=== PATIENT | female | born 1945 | race Two or more races ===

== ENCOUNTER 2022-07-08 13:10 | Inpatient (IN) | payer MEDICARE, MEDICAID ==
[~2022-07-08] VITALS: Ht 167.6 cm; Wt 72.2 kg
[2022-07-08 13:49] LABS: Basophils # (auto) 0.1 10 ^3/uL (0-0.2); Basophils % (auto) 0.8 % (0.0-2.0); Eosinophils # (auto) 0 10 ^3/uL (0-0.8); Eosinophils % (auto) 0.1 % (0.0-7.0); Hematocrit 40.8 % (36.0-46.0); Hemoglobin 13.8 g/dL (12.2-16.2); Lymphocytes % (auto) 11.3 % (10.0-50.0); Mean Corpuscular Hemoglobin 31.5 pg (28.0-32.0); Mean Corpuscular Hgb Conc. 33.9 g/dL (32.0-36.0); Mean Corpuscular Volume 93.1 fL (80.0-100.0); Monocytes # (auto) 1.5 10 ^3/uL (0-1.3); Monocytes % (auto) 8.6 % (0.0-12.0); Neutrophils % (auto) 79.2 % (37.0-80.0); Nucleated Red Blood Cells % 0.1 %; Red Blood Cells 4.39 10^6/uL (4.0-5.20); Red Cell Distribution Width 14.1 % (11.8-14.3); White Blood Cell 17.7 10^3/uL (4.4-10.8)
[2022-07-08 14:08] LABS: Partial Thromboplastin Time 28.8 sec (24.6-33.4)
[2022-07-08 14:15] LABS: Calcium 8.9 mg/dL (8.5-10.1); Magnesium 2.7 mg/dL (1.6-2.6)
[2022-07-08 14:18] LABS: BUN/Creatinine Ratio 11.3; Bilirubin, Total 1.3 mg/dL (0.2-1.0); Total Protein 7.4 g/dL (6.4-8.2)
[2022-07-08 14:20] LABS: Potassium 2.8 mmol/L (3.5-5.1)
[2022-07-08] MEDS ORDERED: POTASSIUM CHL 20 Meq TABLET PO ONE (15:45)
[2022-07-08] MEDS ORDERED: POTASSIUM CHL 20MEQ/100ML 100 ML IV ONE (15:45)
[2022-07-08] MEDS ORDERED: SODIUM CHLORIDE 0.9% 500 ML IV ONE (17:45)
[2022-07-08] MEDS ORDERED: NITROGLYCERIN 0.4 MG SL TAB SL PRN (17:45)
[2022-07-08] MEDS ORDERED: MORPHINE SULFATE INJ 2 MG/ml SYRG IV PRN (17:45)
[2022-07-08] MEDS ORDERED: LEVE500T3 PO (17:47)
[2022-07-08] MEDS ORDERED: DILT-26 PO (17:47)
[2022-07-08] MEDS ORDERED: DIGO0.25 PO (17:47)
[2022-07-08] MEDS ORDERED: MET25T PO (17:47)
[2022-07-08 19:33] LABS: Cholesterol 213 mg/dL (< 200)
[2022-07-08 19:36] LABS: HDL Cholesterol 36 mg/dL (40-59); LDL Cholesterol 142 mg/dL (< 100); Triglycerides 156 mg/dL (< 150)
[2022-07-08 20:56] LABS: BUN/Creatinine Ratio 13.7; Calcium 8.1 mg/dL (8.5-10.1)
[2022-07-08 21:53] LABS: Potassium 2.6 mmol/L (3.5-5.1)
[2022-07-09] MEDS: levETIRAcetam 500 MG TAB PO SCH ×4 (00:32→22:12)
[2022-07-09] MEDS: METOPROLOL TARTRATE 25 MG TAB PO SCH ×4 (00:32→22:13)
[2022-07-09] MEDS: POTASSIUM EFFERVESENT TAB 25 MEQ PO ONE ×2 (00:33→00:41)
[2022-07-09] MEDS: POTASSIUM CHLORIDE 80 MEQ, LIDOCAINE 1% (LOCAL ANESTH.) 6 ML in SODIUM CHL 0.9% 500 ML IV ONE ×2 (00:33→00:41)
[2022-07-09 07:47] LABS: Albumin 2.6 g/dL (3.4-5.0); BUN/Creatinine Ratio 15.6; Basophils # (auto) 0.1 10 ^3/uL (0-0.2); Basophils % (auto) 0.7 % (0.0-2.0); Calcium 8.2 mg/dL (8.5-10.1); Eosinophils # (auto) 0.1 10 ^3/uL (0-0.8); Eosinophils % (auto) 0.4 % (0.0-7.0); Hematocrit 37.6 % (36.0-46.0); Hemoglobin 12.9 g/dL (12.2-16.2); Lymphocytes # (auto) 1.4 10 ^3/uL (0.4-5.4); Lymphocytes % (auto) 10.4 % (10.0-50.0); Mean Corpuscular Hgb Conc. 34.4 g/dL (32.0-36.0); Mean Corpuscular Volume 93.1 fL (80.0-100.0); Monocytes # (auto) 1.2 10 ^3/uL (0-1.3); Monocytes % (auto) 8.7 % (0.0-12.0); Neutrophils # (auto) 11.1 10 ^3/uL (1.6-8.6); Neutrophils % (auto) 79.8 % (37.0-80.0); Red Blood Cells 4.04 10^6/uL (4.0-5.20); Red Cell Distribution Width 13.9 % (11.8-14.3); White Blood Cell 13.9 10^3/uL (4.4-10.8)
[2022-07-09 07:49] LABS: Bilirubin, Total 1.4 mg/dL (0.2-1.0); Total Protein 6.6 g/dL (6.4-8.2)
[2022-07-09 08:22] LABS: Potassium 2.7 mmol/L (3.5-5.1)
[2022-07-09] MEDS ORDERED: LORazepam 2MG/ML-1ML VIAL IV ONE (09:15)
[2022-07-09] MEDS: ENOXAPARIN SOD 40 MG/0.4 ML SYRINGE SC SCH (11:03)
[2022-07-09] MEDS: DIGOXIN 0.25 MG TAB PO SCH (11:03)
[2022-07-09] MEDS: dilTIAZem HCL 180MG ER CAP PO SCH (11:04)
[2022-07-09] MEDS ORDERED: HYDROcodone-ACET 5/325MG TAB PO PRN (13:45)
[2022-07-09] MEDS ORDERED: MORPHINE SULFATE INJ 2 MG/ml SYRG IV PRN (13:45)
[2022-07-09] MEDS ORDERED: hydrALAZINE HCL 20 MG/ML VL IV PRN (13:45)
[2022-07-09] MEDS ORDERED: ONDANSETRON HCL 4 MG/2 ML VIAL IV PRN (13:45)
[2022-07-09] MEDS: cefTRIAXone 1GM/50ML D5W 50 ML IV SCH (14:54)
[2022-07-09] MEDS: D5W/SOD CHL 0.45%/KCL 40MEQ 1,000 ML IV SCH ×2 (15:11→23:45)
[2022-07-09] MEDS: metroNIDAZOLE 500MG/100ML 100 ML IV SCH ×2 (15:11→22:14)
[2022-07-09 16:50] LABS: Urine Bacteria MANY /hpf (None Seen); Urine Blood 2+ /uL (Negative); Urine Specific Gravity 1.015 (1.001-1.035); Urine WBC 627 /hpf (0 - 5); Urine WBC Clumps PRESENT /hpf (None Seen)
[2022-07-09 20:00] VITALS: BP 135/59
[2022-07-09 22:00] VITALS: BP 117/54
[2022-07-09] MEDS: ATORVASTATIN 20 MG TAB PO SCH (22:13)
[2022-07-10 05:00] VITALS: BP 92/46
[2022-07-10] MEDS: metroNIDAZOLE 500MG/100ML 100 ML IV SCH ×3 (05:51→22:20)
[2022-07-10 06:28] LABS: Basophils # (auto) 0 10 ^3/uL (0-0.2); Basophils % (auto) 0.4 % (0.0-2.0); Eosinophils # (auto) 0.1 10 ^3/uL (0-0.8); Eosinophils % (auto) 1.3 % (0.0-7.0); Hematocrit 34.7 % (36.0-46.0); Mean Corpuscular Hemoglobin 32.3 pg (28.0-32.0); Mean Corpuscular Hgb Conc. 34.5 g/dL (32.0-36.0); Mean Corpuscular Volume 93.6 fL (80.0-100.0); Monocytes # (auto) 1.1 10 ^3/uL (0-1.3); Neutrophils # (auto) 6.8 10 ^3/uL (1.6-8.6); Neutrophils % (auto) 67.3 % (37.0-80.0); Nucleated Red Blood Cells % 0.1 %; Red Cell Distribution Width 14.1 % (11.8-14.3)
[2022-07-10 06:44] LABS: BUN/Creatinine Ratio 17.3; Calcium 8.1 mg/dL (8.5-10.1); Magnesium 2.3 mg/dL (1.6-2.6); Potassium 3.5 mmol/L (3.5-5.1)
[2022-07-10 08:00] VITALS: BP 129/61
[2022-07-10] MEDS: D5W/SOD CHL 0.45%/KCL 40MEQ 1,000 ML IV SCH (09:45)
[2022-07-10] MEDS: cefTRIAXone 1GM/50ML D5W 50 ML IV SCH (09:57)
[2022-07-10] MEDS: levETIRAcetam 500 MG TAB PO SCH ×2 (09:59→22:07)
[2022-07-10] MEDS: DIGOXIN 0.25 MG TAB PO SCH (09:59)
[2022-07-10] MEDS: dilTIAZem HCL 180MG ER CAP PO SCH (10:00)
[2022-07-10] MEDS: METOPROLOL TARTRATE 25 MG TAB PO SCH ×2 (10:00→22:08)
[2022-07-10] MEDS: ENOXAPARIN SOD 40 MG/0.4 ML SYRINGE SC SCH (10:01)
[2022-07-10 12:00] VITALS: BP 98/59
[2022-07-10 16:00] VITALS: BP 100/47
[2022-07-10 22:00] VITALS: BP 117/52
[2022-07-10] MEDS ORDERED: QUEtiapine FUMARATE 25 MG TAB PO SCH (22:00)
[2022-07-10] MEDS: ATORVASTATIN 20 MG TAB PO SCH (22:20)
[2022-07-11] MEDS: D5W/SOD CHL 0.45%/KCL 40MEQ 1,000 ML IV SCH ×3 (04:45→13:13)
[2022-07-11 04:50] VITALS: BP 102/46
[2022-07-11] MEDS: metroNIDAZOLE 500MG/100ML 100 ML IV SCH ×3 (05:26→22:32)
[2022-07-11 06:08] LABS: Basophils # (auto) 0 10 ^3/uL (0-0.2); Basophils % (auto) 0.5 % (0.0-2.0); Eosinophils # (auto) 0.1 10 ^3/uL (0-0.8); Eosinophils % (auto) 1.6 % (0.0-7.0); Hematocrit 33.9 % (36.0-46.0); Hemoglobin 11.6 g/dL (12.2-16.2); Lymphocytes # (auto) 1.5 10 ^3/uL (0.4-5.4); Lymphocytes % (auto) 18.4 % (10.0-50.0); Mean Corpuscular Hemoglobin 32.5 pg (28.0-32.0); Mean Corpuscular Hgb Conc. 34.4 g/dL (32.0-36.0); Mean Corpuscular Volume 94.5 fL (80.0-100.0); Monocytes # (auto) 0.9 10 ^3/uL (0-1.3); Monocytes % (auto) 11.3 % (0.0-12.0); Neutrophils # (auto) 5.5 10 ^3/uL (1.6-8.6); Neutrophils % (auto) 68.2 % (37.0-80.0); Red Blood Cells 3.59 10^6/uL (4.0-5.20); Red Cell Distribution Width 14.3 % (11.8-14.3); White Blood Cell 8.1 10^3/uL (4.4-10.8)
[2022-07-11 06:43] LABS: Potassium 3.8 mmol/L (3.5-5.1)
[2022-07-11 06:54] LABS: BUN/Creatinine Ratio 17.4; Calcium 7.9 mg/dL (8.5-10.1)
[2022-07-11 08:00] VITALS: BP 95/57
[2022-07-11] MEDS: levETIRAcetam 500 MG TAB PO SCH ×2 (10:00→22:00)
[2022-07-11] MEDS: dilTIAZem HCL 180MG ER CAP PO SCH (10:00)
[2022-07-11] MEDS: METOPROLOL TARTRATE 25 MG TAB PO SCH ×2 (10:00→22:33)
[2022-07-11] MEDS: DIGOXIN 0.25 MG TAB PO SCH (10:00)
[2022-07-11] MEDS: cefTRIAXone 1GM/50ML D5W 50 ML IV SCH (10:35)
[2022-07-11] MEDS: ENOXAPARIN SOD 40 MG/0.4 ML SYRINGE SC SCH (10:36)
[2022-07-11 12:00] VITALS: BP 123/51
[2022-07-11 16:00] VITALS: BP 115/56
[2022-07-11 22:13] VITALS: BP 106/59
[2022-07-11] MEDS: ATORVASTATIN 20 MG TAB PO SCH (22:32)
[2022-07-12] MEDS: D5W/SOD CHL 0.45%/KCL 40MEQ 1,000 ML IV SCH ×2 (02:04→21:05)
[2022-07-12 05:42] VITALS: BP 102/38
[2022-07-12] MEDS: metroNIDAZOLE 500MG/100ML 100 ML IV SCH ×3 (06:28→23:38)
[2022-07-12 08:26] VITALS: BP 123/61
[2022-07-12] MEDS: DIGOXIN 0.25 MG TAB PO SCH (09:37)
[2022-07-12] MEDS: cefTRIAXone 1GM/50ML D5W 50 ML IV SCH (09:37)
[2022-07-12] MEDS: METOPROLOL TARTRATE 25 MG TAB PO SCH ×2 (09:38→21:48)
[2022-07-12] MEDS: ENOXAPARIN SOD 40 MG/0.4 ML SYRINGE SC SCH (09:38)
[2022-07-12] MEDS: dilTIAZem HCL 180MG ER CAP PO SCH (09:52)
[2022-07-12] MEDS: levETIRAcetam 500 MG TAB PO SCH ×2 (09:52→21:47)
[2022-07-12] MEDS ORDERED: AZITHROMYCIN 500MG/ 250ML 250 ML IV ONE (10:15)
[2022-07-12 12:26] VITALS: BP 102/69
[2022-07-12 13:47] LABS: Calcium 8.1 mg/dL (8.5-10.1); Potassium 3.7 mmol/L (3.5-5.1)
[2022-07-12 13:49] LABS: BUN/Creatinine Ratio 10.1
[2022-07-12 17:04] VITALS: BP 100/67
[2022-07-12] MEDS: ATORVASTATIN 20 MG TAB PO SCH (21:47)
[2022-07-12 22:50] VITALS: BP 127/50
[2022-07-13 05:14] VITALS: BP 125/74
[2022-07-13] MEDS: metroNIDAZOLE 500MG/100ML 100 ML IV SCH ×3 (05:43→22:54)
[2022-07-13] MEDS: cefTRIAXone 1GM/50ML D5W 50 ML IV SCH (08:05)
[2022-07-13] MEDS: DIGOXIN 0.25 MG TAB PO SCH (08:07)
[2022-07-13] MEDS: METOPROLOL TARTRATE 25 MG TAB PO SCH ×3 (08:07→22:57)
[2022-07-13] MEDS: dilTIAZem HCL 180MG ER CAP PO SCH (08:08)
[2022-07-13] MEDS: levETIRAcetam 500 MG TAB PO SCH ×2 (08:08→22:00)
[2022-07-13] MEDS: ENOXAPARIN SOD 40 MG/0.4 ML SYRINGE SC SCH (08:09)
[2022-07-13 09:00] VITALS: BP 121/64
[2022-07-13] MEDS: AZITHROMYCIN 500MG/ 250ML 250 ML IV SCH (12:57)
[2022-07-13 13:00] VITALS: BP 112/76
[2022-07-13] MEDS: D5W/SOD CHL 0.45%/KCL 40MEQ 1,000 ML IV SCH (13:45)
[2022-07-13 17:00] VITALS: BP 126/69
[2022-07-13 22:00] VITALS: BP 133/75
[2022-07-13] MEDS: ATORVASTATIN 20 MG TAB PO SCH (22:56)
[2022-07-14 05:00] VITALS: BP 142/68
[2022-07-14] MEDS: D5W/SOD CHL 0.45%/KCL 40MEQ 1,000 ML IV SCH ×2 (06:25→23:05)
[2022-07-14] MEDS: metroNIDAZOLE 500MG/100ML 100 ML IV SCH ×3 (06:26→23:13)
[2022-07-14 09:00] VITALS: BP 138/60
[2022-07-14] MEDS: cefTRIAXone 1GM/50ML D5W 50 ML IV SCH (09:30)
[2022-07-14] MEDS: DIGOXIN 0.25 MG TAB PO SCH (10:00)
[2022-07-14] MEDS: ENOXAPARIN SOD 40 MG/0.4 ML SYRINGE SC SCH (10:00)
[2022-07-14] MEDS: METOPROLOL TARTRATE 25 MG TAB PO SCH ×2 (10:00→22:00)
[2022-07-14] MEDS: levETIRAcetam 500 MG TAB PO SCH ×2 (10:00→22:00)
[2022-07-14] MEDS: dilTIAZem HCL 180MG ER CAP PO SCH (10:00)
[2022-07-14] MEDS: AZITHROMYCIN 500MG/ 250ML 250 ML IV SCH (10:10)
[2022-07-14 13:00] VITALS: BP 146/68
[2022-07-14] MEDS: risperiDONE 1 MG TAB PO SCH (15:00)
[2022-07-14 17:00] VITALS: BP 142/60
[2022-07-14 22:00] VITALS: BP 165/77
[2022-07-14] MEDS: ATORVASTATIN 20 MG TAB PO SCH (22:00)
[2022-07-15] MEDS ORDERED: METOPROLOL TARTRATE 1MG/1ML-5ML VIAL IV ONE (00:45)
[2022-07-15] MEDS: metroNIDAZOLE 500MG/100ML 100 ML IV SCH ×3 (05:56→21:56)
[2022-07-15 09:30] VITALS: BP 142/66
[2022-07-15] MEDS: dilTIAZem HCL 180MG ER CAP PO SCH (10:00)
[2022-07-15] MEDS: ENOXAPARIN SOD 40 MG/0.4 ML SYRINGE SC SCH (10:00)
[2022-07-15] MEDS: levETIRAcetam 500 MG TAB PO SCH ×2 (10:00→21:57)
[2022-07-15] MEDS: risperiDONE 1 MG TAB PO SCH (10:00)
[2022-07-15] MEDS: METOPROLOL TARTRATE 25 MG TAB PO SCH ×2 (10:00→21:57)
[2022-07-15] MEDS: cefTRIAXone 1GM/50ML D5W 50 ML IV SCH (13:00)
[2022-07-15 13:30] VITALS: BP 144/69
[2022-07-15] MEDS: DIGOXIN 0.25 MG TAB PO SCH (13:30)
[2022-07-15] MEDS: AZITHROMYCIN 500MG/ 250ML 250 ML IV SCH (13:30)
[2022-07-15 13:55] LABS: Basophils # (auto) 0.1 10 ^3/uL (0-0.2); Basophils % (auto) 1.4 % (0.0-2.0); Eosinophils # (auto) 0.1 10 ^3/uL (0-0.8); Hematocrit 36.4 % (36.0-46.0); Hemoglobin 12.1 g/dL (12.2-16.2); Lymphocytes # (auto) 1.8 10 ^3/uL (0.4-5.4); Lymphocytes % (auto) 19.1 % (10.0-50.0); Mean Corpuscular Hemoglobin 31.5 pg (28.0-32.0); Mean Corpuscular Hgb Conc. 33.3 g/dL (32.0-36.0); Mean Corpuscular Volume 94.6 fL (80.0-100.0); Monocytes % (auto) 10.5 % (0.0-12.0); Neutrophils # (auto) 6.3 10 ^3/uL (1.6-8.6); Red Blood Cells 3.85 10^6/uL (4.0-5.20); Red Cell Distribution Width 14.5 % (11.8-14.3); White Blood Cell 9.3 10^3/uL (4.4-10.8)
[2022-07-15 13:58] LABS: Calcium 8.8 mg/dL (8.5-10.1); Potassium 3.4 mmol/L (3.5-5.1)
[2022-07-15 14:00] LABS: BUN/Creatinine Ratio 10.4
[2022-07-15] MEDS ORDERED: NITR-87 PO (15:16)
[2022-07-15] MEDS: ACETAMINOPHEN 500 MG TAB PO PRN (16:45)
[2022-07-15 16:55] VITALS: BP 132/80
[2022-07-15] MEDS: ATORVASTATIN 20 MG TAB PO SCH (21:56)
[2022-07-15 22:00] VITALS: BP 121/63
[2022-07-16] MEDS: ACETAMINOPHEN 500 MG TAB PO PRN (01:00)
[2022-07-16] MEDS: metroNIDAZOLE 500MG/100ML 100 ML IV SCH ×4 (06:18→21:43)
[2022-07-16 09:00] VITALS: BP 112/76
[2022-07-16] MEDS: cefTRIAXone 1GM/50ML D5W 50 ML IV SCH (09:00)
[2022-07-16] MEDS: AZITHROMYCIN 500MG/ 250ML 250 ML IV SCH (10:00)
[2022-07-16] MEDS: METOPROLOL TARTRATE 25 MG TAB PO SCH ×2 (10:00→22:15)
[2022-07-16] MEDS: ENOXAPARIN SOD 40 MG/0.4 ML SYRINGE SC SCH (10:00)
[2022-07-16] MEDS: DIGOXIN 0.25 MG TAB PO SCH (10:00)
[2022-07-16] MEDS: dilTIAZem HCL 180MG ER CAP PO SCH (10:00)
[2022-07-16] MEDS: levETIRAcetam 500 MG TAB PO SCH ×2 (10:00→21:43)
[2022-07-16] MEDS: risperiDONE 1 MG TAB PO SCH (10:00)
[2022-07-16 13:00] VITALS: BP 138/86
[2022-07-16] MEDS ORDERED: METOPROLOL TARTRATE 1MG/1ML-5ML VIAL IV ONE (13:15)
[2022-07-16 16:42] VITALS: BP 155/75
[2022-07-16] MEDS: ATORVASTATIN 20 MG TAB PO SCH (21:43)
[2022-07-16 22:00] VITALS: BP 150/99
[2022-07-17 05:00] VITALS: BP 111/74
[2022-07-17] MEDS: metroNIDAZOLE 500MG/100ML 100 ML IV SCH (05:08)
[2022-07-17 09:00] VITALS: BP 123/76
[2022-07-17] MEDS ORDERED: METOPROLOL TARTRATE 1MG/1ML-5ML VIAL IV ONE (09:00)
[2022-07-17] MEDS: cefTRIAXone 1GM/50ML D5W 50 ML IV SCH (09:00)
[2022-07-17] MEDS: AZITHROMYCIN 500MG/ 250ML 250 ML IV SCH (09:58)
[2022-07-17] MEDS: dilTIAZem HCL 180MG ER CAP PO SCH (10:00)
[2022-07-17] MEDS: DIGOXIN 0.25 MG TAB PO SCH (10:00)
[2022-07-17] MEDS: METOPROLOL TARTRATE 25 MG TAB PO SCH (10:00)
[2022-07-17] MEDS: risperiDONE 1 MG TAB PO SCH (10:00)
[2022-07-17] MEDS: ENOXAPARIN SOD 40 MG/0.4 ML SYRINGE SC SCH (10:00)
[2022-07-17] MEDS: levETIRAcetam 500 MG TAB PO SCH (10:00)
== END 2022-07-17 11:40 | disposition home or self-care (01) | DRG 871 ==
LOC: ER 13:10 → EDBD 13:10 → TELE 17:47 → TELE-WESTW 07-09 17:45
PROVIDERS: ADMIT Registered Nurse; ATTEND Nurse Practitioner Acute Care
DX: A41.9 Sepsis, unspecified organism (principal); G93.41 Metabolic encephalopathy; I21.A1 Myocardial infarction type 2; J15.9 Unspecified bacterial pneumonia; N39.0 Urinary tract infection, site not specified; E87.6 Hypokalemia; I50.9 Heart failure, unspecified; J45.909 Unspecified asthma, uncomplicated; R65.20 Severe sepsis without septic shock; F32.A Depression, unspecified; Z20.822 Contact with and (suspected) exposure to COVID-19; E78.5 Hyperlipidemia, unspecified; I48.91 Unspecified atrial fibrillation; I11.0 Hypertensive heart disease with heart failure; R19.7 Diarrhea, unspecified; F03.90 Unspecified dementia, unspecified severity, without behavioral disturbance, psychotic disturbance, mood disturbance, and anxiety; F20.9 Schizophrenia, unspecified; Z88.6 Allergy status to analgesic agent
CPT/HCPCS: 36415; 71045; 80048; 80053; 80061; 80162; 81001; 82607; 83036; 83605; 83735; 83880; 84443; 84484; 85025; 85610; 85730; 87040; 87045; 87086; 87426; 87427; 93005; 93306; G0378; J0696; J2001; J3480; J3490